=== PATIENT | male | born 1965 | race Hispanic/Latino ===

== ENCOUNTER 2018-01-07 08:17 | Outpatient (CLI) | payer BC ==
[2018-01-07 08:29] LABS: Hematocrit 41.2 % (35.5-45.6); Hemoglobin 13.4 gm/dl (11.8-15.2); Mean Corpuscular HGB Conc 33 % (32-34); Mean Corpuscular Hemoglobin 28 pg (28-32); Mean Corpuscular Volume 86 fl (84-94); Platelet Count 352 K/mm3 (140-440); Red Blood Count 4.79 M/mm3 (3.65-5.03); Red Cell Distribution Width 13.5 % (13.2-15.2)
[2018-01-07 08:54] LABS: Alanine Aminotransferase 17 units/L (7-56); Albumin 4.3 g/dL (3.9-5); BUN/Creatinine Ratio 17; Blood Urea Nitrogen 19 mg/dL (9-20); Chol/HDL Ratio 3.18 %; HDL Cholesterol 38 mg/dL (40-59); Hemolysis Index 5; LDL Cholesterol,Direct 62 mg/dL (50-130)
== END 2018-01-07 08:18 | disposition home or self-care (01) ==
LOC: LAB 08:17
PROVIDERS: ATTEND Internal Medicine Cardiovascular Disease
DX: I10 Essential (primary) hypertension (principal); E78.5 Hyperlipidemia, unspecified; R00.2 Palpitations; R79.89 Other specified abnormal findings of blood chemistry
CPT/HCPCS: 36415; 80053; 80061; 83036; 84443; 85027

== ENCOUNTER 2018-08-19 13:37 | Outpatient (CLI) | payer BC ==
--- NOTE | 2018-08-19 15:32 | XRay Report ---
LUMBOSACRAL SPINE, FIVE VIEWS: HISTORY: Low back pain. Moderate degenerative disc disease and facet arthropathy are identified at all levels. L3-4 appears to be the most affected level. There is no evidence for compression deformity, subluxation, pars defect or bone lesion. The neural foramen appear patent on the oblique images. Mild symmetric degenerative changes in the SI joints. IMPRESSION: Moderate multilevel lumbar spondylosis as described.
== END 2018-08-19 13:38 | disposition home or self-care (01) ==
LOC: XRAY 13:37
PROVIDERS: ATTEND Family Medicine
DX: M47.896 Other spondylosis, lumbar region (principal); M51.36 Other intervertebral disc degeneration, lumbar region
CPT/HCPCS: 72110

== ENCOUNTER 2018-08-26 08:17 | Outpatient (CLI) | payer BC ==
[2018-08-26 08:49] LABS: Hematocrit 41.6 % (35.5-45.6); Mean Corpuscular HGB Conc 34 % (32-34); Mean Corpuscular Hemoglobin 29 pg (28-32); Mean Corpuscular Volume 86 fl (84-94); Platelet Count 314 K/mm3 (140-440); Red Blood Count 4.85 M/mm3 (3.65-5.03); Red Cell Distribution Width 13.4 % (13.2-15.2)
[2018-08-26 09:04] LABS: Albumin 4.3 g/dL (3.9-5); Calcium 9.5 mg/dL (8.4-10.2)
[2018-08-28 23:02] LABS: Gamma Globulin 0.9 g/dL (0.8-1.7)
== END 2018-08-26 08:18 | disposition home or self-care (01) ==
LOC: LAB 08:17
PROVIDERS: ATTEND Family Medicine
DX: M54.5 Low back pain (principal)
CPT/HCPCS: 36415; 80053; 84165; 85027